=== PATIENT | male | born 1960 | race Caucasian/White ===

== ENCOUNTER 2020-06-03 09:45 | Emergency (ER) | payer BC, SELFPAY ==
--- NOTE | ~2020-06-03 | CT_ITS ---
EXAMINATION: CT abdomen pelvis wo con DATE: 06/03/2020 10:59 INDICATION: Left flank pain TECHNIQUE: Computed tomography (CT) of the abdomen and pelvis was performed without intravenous contr ast. Automated exposure control and iterative reconstruction technique were employed. The dose-length product was 506.94 mGy-cm. COMPARISON: None FINDINGS: Normal dependent atelectasis in the bilateral lower lobes. Mild cardiomegaly. No pericardial or pleur al effusion. A couple subcentimeter low-attenuation likely cyst in the right hepatic lobe. Numerous s cattered small parenchymal calcifications throughout the pancreas consistent with sequela of chronic pancreatitis. Gallbladder, spleen, right kidney and bilateral adrenal glands are normal. 3 mm stone a t the left ureterovesicular junction with mild left hydroureteronephrosis. Mild left periureteral str anding. No other evident urolithiasis. 1.3 cm exophytic left renal cyst. There is moderate colonic di verticulosis with a sigmoid predominance. There is no adjacent inflammatory change to suggest diverti culitis. Small bowel and appendix are normal. There is mild stranding around the partially decompres sed bladder centered on the ureterovesicular junction. Prostatomegaly. No free intraperitoneal gas or fluid. No pathologically enlarged abdominal or pelvic lymphadenopathy. Suggestion of a right hydroce le. Mild to moderate lumbar spondylosis. Otherwise mild scattered degenerative skeletal changes. IMPRESSION: 1. Obstructing 3 mm stone at the left ureteral vesicular junction with mild left hydroureteronephrosi s with mild inflammatory stranding about the bladder and left ureter. Correlate with urinalysis to ex clude associated ascending urinary tract infection. 2. Mild cardiomegaly. Line 3. Diverticulosis. 4. Likely right hydrocele. Reviewed, dictated and finalized at location A. IMPRESSION: 1. Obstructing 3 mm stone at the left ureteral vesicular junction with mild lef t hydroureteronephrosis with mild inflammatory stranding about the bladder and left ureter. Correlate with urinalysis to exclude associated ascending urinary tract infection. 2. Mild cardiomegaly. Line 3. Diverticulosis. 4. Likely right hydrocele.
--- NOTE | ~2020-06-03 | XR_ITS ---
EXAMINATION: XR abdomen/kub 1V DATE: 06/03/2020 11:11 INDICATION: Left flank pain TECHNIQUE: A supine view of the abdomen on 2 radiographs was obtained. COMPARISON: CT dated 06/03/2020 FINDINGS: The 3 mm stone at the left ureterovesicular junction is subtly visible on the plain radiographs. Nume jesi pancreatic calcifications in the upper abdomen consistent with sequela of chronic pancreatitis. Normal bowel gas pattern. Mild to moderate lower lumbar spondylosis. IMPRESSION: 1. 3 mm stone at the left ureterovesicular junction. 2. Numerous pancreatic calcifications consistent with chronic pancreatitis. Reviewed, dictated and finalized at location A.
[2020-06-03 09:57] VITALS: BP 173/101; PULSE 78; RESP 18; TEMP 36.8; O2SAT 99
[2020-06-03 10:05] LABS: Basophils Absolute Auto 0.1 K/mm3 (0.0-0.1); Basophils Percent Auto 0.8 % (0.2-1.2); Eosinophils Absolute Auto 0.2 K/mm3 (0-0.3); Eosinophils Percent Auto 1.9 % (0-4.4); Hemoglobin 15.6 g/dL (14.0-18.0); Immature Granulocyte Absolute 0.03 K/mm3 (0.00-0.031); Immature Granulocyte Percent A 0.3 % (0-0.5); Lymphocytes Absolute Auto 2.36 K/mm3 (0.9-3.2); Lymphocytes Percent Auto 26.5 % (18.3-44.2); Mean Corpuscular HGB Conc 35.5 g/dl (32-36); Mean Corpuscular Hemoglobin 32.9 pg (26-34); Mean Corpuscular Volume 92.8 fl (80-100); Mean Platelet Volume 9.8 fl (7.4-10.4); Monocytes Absolute Auto 0.6 K/mm3 (0.1-0.6); Monocytes Percent Auto 6.8 % (2.6-8.5); Neutrophils Absolute Auto 5.7 K/mm3 (1.3-6.7); Neutrophils Percent Auto 63.7 % (45.5-73.1); Platelet Count Result 242 k/mm3 (150-375); Red Blood Count 4.74 M/mm3 (4.6-6.20); Red Cell Distribution Width 12.2 % (11.5-14.5); White Blood Count 8.9 K/mm3 (4.5-10.0)
[2020-06-03 10:19] LABS: Alanine Aminotransferase 17 U/L (4-50); Albumin Level 4.6 g/dL (3.5-5.1); Alkaline Phosphatase 70 U/L (38-126); Anion Gap 13 mmol/L (8-16); Aspartate Amino Transferase 27 U/L (17-59); Blood Urea Nitrogen 16 mg/dL (9-20); Calcium 9.7 mg/dL (8.4-10.2); Carbon Dioxide 24 mmol/L (22-30); Chloride 101 mmol/L (98-107); Estimated CRCL calculation 83 ml/min; Estimated Glomerular Filt Rate > 60; Glucose 180 mg/dL (75-110); Lipase 185 U/L (23-300); Potassium 4.3 mmol/L (3.4-5.0); Sodium 138 mmol/L (137-145)
[2020-06-03 10:39] LABS: Add Urine Microscopic? YES; Appearance Urine Clear (Clear); Bacteria Urine Trace /hpf; Bilirubin Urine Negative (Negative); Blood Urine 2+ (Negative); Color Urine Yellow (Yellow); Glucose Urine UA Negative (Negative); Ketones Urine Trace mg/dL (Negative); Leukocyte Esterase Ur 1+ LEU/UL (Negative); Mucus Urine Rare /lpf; Nitrate Urine Negative (Negative); Protein Urine Negative (Negative); RBC Urine 21-50 /hpf (0-2); Squamous Epithelial Cell Urine Occasional /hpf (Few); Urobilinogen Urine Negative mg/dL (<2.0); WBC Urine 31-50 /hpf
[2020-06-03] MEDS: SODIUM CHLORIDE 0.9% IV 1,000 ML 999 ML IV CONT (10:54)
[2020-06-03] MEDS: FAMOTIDINE 20 MG/2 ML VIAL IV PUSH (10:54)
--- NOTE | 2020-06-03 11:27 | ED.ABDPAIN ---
HPI - Abdominal Pain General Chief Complaint: Abdominal Pain Stated Complaint: LLQ ABD PAIN Time Seen by Provider: 06/03/20 10:05 Source: patient Mode of arrival: ambulatory Limitations: no limitations History of Present Illness HPI narrative: Patient is 60-year-old male who presents with left flank pain that is been intermittent for the last couple of days patient thought he may have been constipated took [id number] medication with no relief patient notes he did have some chills and sweats when the pain intensified pain is currently 3 out of 10 in the left lower flank abdomen region nothing is made the pain better or worse at this time aside from laying on the right patient denies similar occurrence in the past not been seen for this complaint presents per private vehicle Related Data Home Medications Medication Instructions Recorded Confirmed lisinopril 10 mg PO HS 06/03/20 Allergies Allergy/AdvReac Type Severity Reaction Status Date / Time No Known Allergies Allergy Verified 06/03/20 10:01 Review of Systems Review of Systems: All systems reviewed & are unremarkable except as noted in HPI and below PMFSH Past Medical History Medical History Hypertension Social History Social History (Updated 06/03/20 @ 11:31 by Fidencio Roldan PA-C) Smoking status: Never smoker Gender identity (if verbalized by the patient): Male Exam Narrative: Exam Narrative: GENERAL: Well-appearing, well-nourished, and in no acute distress. HEAD: Normocephalic, atraumatic. EYES: PERRLA and EOMI. ENT: Nares clear, no rhinorrhea or epistaxis. Mucous membranes moist. CHEST: Clear to auscultation. No respiratory distress. No wheezes rales or rhonchi HEART: Regular rate and rhythm. No murmur heard. Normal peripheral pulses. ABDOMEN: Soft, left flank tenderness in the lower left abdomen, nondistended EXTREMITIES: Normal range of motion. No edema. SKIN: Warm, dry, no rash. NEURO: No focal deficits. Alert and oriented x3. PSYCH: Normal mood and affect. Course Course Emergency Course: Patient in the room in no distress denying any pain aware of discussion with urology was given medications to include fluids and antibiotics in the emergency department will be discharged with plan follow-up with urology agrees with this plan Consultations Consultation #1: Case discussed with urology who will follow the patient in clinic to be managed with antibiotics and standard medications Date: 06/03/20 Time: 12:37 Vital Signs Vital signs: Vital Signs Temperature 98.3 F 06/03/20 09:57 Pulse Rate 78 06/03/20 09:57 Respiratory Rate 18 06/03/20 09:57 Blood Pressure 173/101 H 06/03/20 09:57 Pulse Oximetry 99 06/03/20 09:57 Temperature 98.3 F 06/03/20 09:57 Pulse Rate 78 06/03/20 09:57 Respiratory Rate 18 06/03/20 09:57 Blood Pressure 173/101 H 06/03/20 09:57 Pulse Oximetry 99 06/03/20 09:57 MDM - Abdominal Pain MDM Narrative Medical decision making narrative: Patient with kidney stone in the room in no distress was hydrated given medications in the emergency department including antibiotics afebrile nontoxic-appearing no distress 3 mm stone will be followed in clinic patient's pain is 0 at this time Lab Data Result diagrams: 06/03/20 09:55 06/03/20 09:55 Labs: Lab Results 06/03/20 06/03/20 06/03/20 Range/Units 09:55 09:55 10:26 WBC 8.9 (4.5-10.0) K/mm3 RBC 4.74 (4.6-6.20) M/mm3 Hgb 15.6 (14.0-18.0) g/dL Hct 44.0 (42.0-52.0) % MCV 92.8 (80-100) fl MCH 32.9 (26-34) pg MCHC 35.5 (32-36) g/dl RDW 12.2 (11.5-14.5) % Plt Count 242 (150-375) k/mm3 MPV 9.8 (7.4-10.4) fl Immature Gran % (Auto) 0.3 (0-0.5) % Neut % (Auto) 63.7 (45.5-73.1) % Lymph % (Auto) 26.5 (18.3-44.2) % [place] % (Auto) 6.8 (2.6-8.5) % Eos % (Auto) 1.9 (0-4.4) % Baso % (A
[2020-06-03 13:16] VITALS: BP 120/73; PULSE 58; RESP 18; O2SAT 96
== END 2020-06-03 13:17 | disposition home or self-care (01) ==
PROVIDERS: Emergency Provider Emergency Medicine; PCP Family Medicine
DX: N13.2 Hydronephrosis with renal and ureteral calculous obstruction (principal); N39.0 Urinary tract infection, site not specified; I10 Essential (primary) hypertension; I51.7 Cardiomegaly; K57.90 Diverticulosis of intestine, part unspecified, without perforation or abscess without bleeding; R93.5 Abnormal findings on diagnostic imaging of other abdominal regions, including retroperitoneum
CPT/HCPCS: 36415; 74018; 74176; 80053; 81001; 83690; 85025; 87086; 96361; 96365; 96375; 99284; J0696; J7030

== ENCOUNTER → 2020-06-13 09:21 | Outpatient (CLI) | payer BC, SELFPAY ==
--- NOTE | ~2020-06-13 | XR_ITS ---
EXAMINATION: XR abdomen/kub 1V INDICATION: Left kidney stone TECHNIQUE: Supine views of the abdomen were obtained on 2 radiographs. COMPARISON: 06/03/2020 FINDINGS: An unchanged 3 mm stone projects at the expected location of the left ureterovesicular junc tion. No additional urolithiasis is identified. The bowel gas pattern is normal. Punctate calcificati ons of the upper abdomen are consistent with chronic pancreatitis. There are no dilated loops of denisa l. IMPRESSION: 1. Unchanged 3 mm stone projecting at the expected location of the left ureterovesicular junction. Reviewed, dictated and finalized at location A. 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 Unchanged 3 mm stone projecting at the expected location of the left uretero vesicular junction.
== END ==
PROVIDERS: Visit Provider Urology
DX: N20.0 Calculus of kidney (principal)
CPT/HCPCS: 74018

== ENCOUNTER → 2020-06-26 14:25 | Outpatient (CLI) | payer BC, SELFPAY ==
--- NOTE | ~2020-06-26 | XR_ITS ---
EXAMINATION: XR abdomen/kub 1V DATE: 06/26/2020 14:44 INDICATION: Left ureteral stone TECHNIQUE: A supine view of the abdomen on 2 radiographs was obtained. COMPARISON: 06/13/2020 FINDINGS: Multiple small calcifications project over the head, body and tail the pancreas consistent with seque la of chronic pancreatitis. Unchanged tiny phlebolith in the left hemipelvis. No evident urolithiasis . Specifically the previously seen stone in the region of the left ureterovesicular junction is no lo nger visualized. No dilated loops of bowel to suggest obstruction. Lung bases are clear. Heart size i s normal. L5 is partially sacralized on the left IMPRESSION: 1. No evident urolithiasis. 2. Numerous pancreatic callus calcification is consistent with sequela of chronic pancreatitis. Reviewed, dictated and finalized at location . 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 No evident urolithiasis. 2. Numerous pancreatic callus calcification is consistent with sequela of chron ic pancreatitis.
== END ==
PROVIDERS: Visit Provider Urology
DX: N20.1 Calculus of ureter (principal)
CPT/HCPCS: 74018

== ENCOUNTER → 2020-07-12 10:03 | Outpatient (CLI) | payer BC, SELFPAY ==
--- NOTE | ~2020-07-12 | XR_ITS ---
XR abdomen/kub 1V 07/12/2020 12:27 Indication: Left ureteral stone Procedure: KUB Comparison: 06/26/2020 Findings: There are pancreatic calcifications, consistent with chronic pancreatitis. Bowel gas patter n is nonobstructive. No definite renal/ureteral stones are identified. No acute osseous abnormality. Lung bases unremarkable. Impression: 1: Chronic pancreatitis. Reviewed, dictated and finalized at location B. 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
--- NOTE | ~2020-07-12 | CT_ITS ---
EXAMINATION: CT abdomen pelvis wo con DATE: 07/12/2020 12:31 INDICATION: Left ureteral stone. TECHNIQUE: Computed tomography (CT) of the abdomen and pelvis was performed without intravenous contr ast. Automated exposure control and iterative reconstruction technique were employed. The dose-length product was 466.78 mGy-cm. COMPARISON: CT abdomen and pelvis 06/03/2020 FINDINGS: The visualized portions of the lung bases demonstrate minimal atelectasis. No pleural effus ion. The heart size is normal. No pericardial effusion. There is a small sliding hiatal hernia. There are cysts in the liver measuring up to 6 mm. The gallbladder and spleen are normal. There are calcif ications of the pancreas, consistent with chronic pancreatitis. The adrenal glands and right kidney a re normal. There is a 13 mm cyst in left kidney. There is a 2 mm stone in distal left ureter. No hydr onephrosis. The prostate is moderately enlarged. There is diverticulosis of the colon without evidenc e of diverticulitis. There are no dilated loops of bowel. The appendix is normal. There are no pathol ogically enlarged lymph nodes. There is no free intraperitoneal fluid. There is mild thoracolumbar sp ondylosis. IMPRESSION: 1. 2 mm stone in distal left ureter. No hydronephrosis. Reviewed, dictated and finalized at location A. 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
== END ==
PROVIDERS: Visit Provider Urology
DX: N20.1 Calculus of ureter (principal); K86.1 Other chronic pancreatitis
CPT/HCPCS: 74018; 74176

== ENCOUNTER → 2020-11-14 13:03 | Outpatient (CLI) | payer BC, SELFPAY ==
--- NOTE | ~2020-11-14 | XR_ITS ---
EXAMINATION: XR abdomen/kub 1V INDICATION: Left ureteral stone TECHNIQUE: Supine views of the abdomen were obtained on 2 radiographs. COMPARISON: 07/12/2020 FINDINGS: A 2 mm left distal ureteral stone seen on the comparison CT is not definitely identified. N o urolithiasis is seen. Punctate calcifications in the left upper quadrant and midline upper abdomen are consistent with chronic pancreatitis. The bowel gas pattern is normal. IMPRESSION: 1. No definite urolithiasis identified. Reviewed, dictated and finalized at location A.
== END ==
PROVIDERS: Visit Provider Urology
DX: N20.1 Calculus of ureter (principal)
CPT/HCPCS: 74018

== ENCOUNTER 2022-09-20 07:26 | Outpatient (CLI) | payer BC, SELFPAY ==
--- NOTE | ~2022-09-20 | NM_ITS ---
EXAMINATION: NM bone scan whole body DATE: 09/20/2022 12:43 INDICATION: Malignant neoplasm of prostate. TECHNIQUE: 25.2 mCi Tc-99m HDP was administered intravenously. Delayed whole-body scintigrams were o btained. COMPARISON: CT abdomen and pelvis 07/12/2020 FINDINGS: There is joint-centered increased activity in the acromioclavicular joints, sternoclavicula r joints, spine, wrists, and feet, likely osteoarthritis. IMPRESSION: 1. No specific evidence of metastatic disease. Reviewed, dictated and finalized at location A. ER [employer]EDS
== END 2022-09-20 07:27 | disposition home or self-care (01) ==
PROVIDERS: PCP Family Medicine; Visit Provider Urology
DX: C61 Malignant neoplasm of prostate (principal)
CPT/HCPCS: 78306; A9503

== ENCOUNTER 2023-01-14 01:58 | Day surgery (SDC) | payer BC, SELFPAY ==
--- NOTE | 2023-01-14 10:00 | P.PNAN_ITS ---
Anes - Initial Pre Proc Eval Procedure: Operation Date: 01/14/23 13:45 Proposed Procedures p Colonoscopy - Elbert New MD Date/Time: 01/14/23 10:00 Surgeon: Elbert New MD Pre Op Diagnosis: Rectal Pain, Rectal bleeding Patient Data Age: 62 Gender: M Height: 17.98 m Weight: 87 kg Allergies Allergy/AdvReac Type Severity Reaction Status Date / Time No Known Allergies Allergy Verified 01/14/23 12:25 Home Medications Medication Instructions Recorded Confirmed Type lisinopril 10 mg tablet 10 mg PO HS 06/03/20 01/02/23 History tamsulosin 0.4 mg capsule (Flomax) 0.4 mg PO DAILY 10 days #10 caps 06/03/20 01/02/23 Rx glimepiride 2 mg tablet 2 mg PO BID 01/02/23 01/02/23 History Patient hx anesthesia problems: none Family hx anesthesia problems: none Results Review: All pre-operative results and documents have been reviewed as part of the pre- operative evaluation. [facility] Past Medical History Medical History (Updated 01/14/23 @ 10:01 by Jean Paul Adams MD) Diabetes Hypertension Prostate CA Social History Social History (Updated 06/03/20 @ 11:31 by Fidencio Roldan, PA-C) Smoking packs per day: 0.5 Smoking cigarettes per day: 10.0 Years smoked: 20 Smoking pack-years: 10.00 Smoking status: Former smoker Tobacco type: cigarettes Alcohol intake: never Substance use type: does not use Living arrangements: with family Gender identity (if verbalized by the patient): Male Spiritual care concerns: No Anes - Eval Final PreProcedure Day of Procedure 01/14/23 10:00 Patient weight: overweight Heart: regular rate and rhythm Lungs: clear to auscultation and normal air movement Airway: Mallampati scale class II Neurological: alert and oriented Last oral intake: >/= 8 hours ASA classification: III Emergent: no Anesthetic plan: proceed Anesthesia type and monitoring: general GIVS Results Review: All pre-operative results and documents have been reviewed as part of the pre- operative evaluation. Informed Consent: The patient's anesthetic plan and its attendant risks and benefits were discussed with the patient/family/POA. Questions were solicited and answers provided to the satisfaction of the patient/family/POA.
[2023-01-14 12:40] LABS: Glucose Point of Care 83 mg/dl (65-105)
[2023-01-14] MEDS: LACTATED RINGERS 1,000 ML 150 ML IV CONT (12:50)
--- NOTE | 2023-01-14 13:54 | PM.HPGS ---
History of Present Illness History of Present Illness Consent: Risks, benefits, and alternatives have been discussed and questions answered. Patient agrees to proceed with procedure. Chief complaint: Rectal Pain, Rectal bleeding Narrative: Kendall Morse is a 62 year old male here for first screening colonoscopy, he has been having intermittent rectal pain Review of Systems Constitutional: Constitutional: Denies headache(s) and Denies weakness Eyes: Eyes: Denies blurry vision ENT: Reports Normal hearing present, Denies headache(s) and Denies neck pain Cardiovascular: Cardiovascular: Denies chest pain and Denies dyspnea Respiratory: Respiratory: Denies dyspnea Gastrointestinal: Gastrointestinal: Reports no additional gastrointestinal complaints Genitourinary: Genitourinary: Denies dysuria Musculoskeletal: Musculoskeletal: Denies neck pain Integumentary/Breasts: Skin/Breast: Denies dry skin Neurologic: Reports Normal hearing present, Denies headache(s) and Denies weakness Psychiatric: Psychiatric: Denies anxiety Endocrine: Endocrine: Denies change in body appearance Hematologic/Lymphatic: Hematologic/Lymphatic: Denies easy bleeding Allergic/Immunologic: Allergic/Immunologic: Denies urticaria PMF Past Medical History Medical History (Updated 01/14/23 @ 13:55 by Elbert New MD) Colon cancer screening Diabetes Hypertension Prostate CA Social History Social History (Updated 06/03/20 @ 11:31 by Fidencio Roldan, PA-C) Smoking packs per day: 0.5 Smoking cigarettes per day: 10.0 Years smoked: 20 Smoking pack-years: 10.00 Smoking status: Former smoker Tobacco type: cigarettes Alcohol intake: never Substance use type: does not use Living arrangements: with family Gender identity (if verbalized by the patient): Male Spiritual care concerns: No Meds Home Medications and Allergies Home Medications Medication Instructions Recorded Confirmed Type lisinopril 10 mg tablet 10 mg PO HS 06/03/20 01/02/23 History tamsulosin 0.4 mg capsule (Flomax) 0.4 mg PO DAILY 10 days #10 caps 06/03/20 01/02/23 Rx glimepiride 2 mg tablet 2 mg PO BID 01/02/23 01/02/23 History Allergies Allergy/AdvReac Type Severity Reaction Status Date / Time No Known Allergies Allergy Verified 01/14/23 12:25 Exam Const: General: comfortable and no acute distress HENMT: Face/Nose/Sinus: Normal nares present Eyes: General: appearance normal, both eyes and all related structures Neck: Neck: no JVD Resp: Auscultation: clear to auscultation bilaterally Cardio: Rate: regular rate Rhythm: regular rhythm GI: Inspection: non-distended GI Palp: Yes Soft to palpation Skin: General skin exam: normal color Neuro: General: gait normal Speech: normal speech Extrem: General: normal to inspection Psych: Mental Status: mental status grossly normal Assessment and Plan Assessment and plan (1) Colon cancer screening: Code(s): Z12.11 - Encounter for screening for malignant neoplasm of colon Status: Acute Assessment and Plan: colonoscopy
[2023-01-14 14:10] VITALS: BP 124/62; PULSE 56; RESP 21; O2SAT 95
[2023-01-14 14:20] VITALS: BP 118/62; PULSE 57; RESP 20; O2SAT 96
[2023-01-14 14:30] VITALS: BP 125/59; PULSE 58; RESP 16; O2SAT 96
== END 2023-01-14 14:35 | disposition home or self-care (01) ==
PROVIDERS: PCP Family Medicine; Visit Provider Internal Medicine Gastroenterology
PROC: 0DJD8ZZ Inspection of Lower Intestinal Tract, Via Natural or Artificial Opening Endoscopic (ICD-10-PCS; CPT 45378; principal; 2023-01-14 13:45)
DX: Z12.11 Encounter for screening for malignant neoplasm of colon (principal); D12.0 Benign neoplasm of cecum; K57.30 Diverticulosis of large intestine without perforation or abscess without bleeding; K64.8 Other hemorrhoids; E11.9 Type 2 diabetes mellitus without complications; I10 Essential (primary) hypertension; Z87.891 Personal history of nicotine dependence; Z79.84 Long term (current) use of oral hypoglycemic drugs; Z85.46 Personal history of malignant neoplasm of prostate
CPT/HCPCS: 45385; 82948; 88305; J2704; J7120